=== PATIENT | female | born 1965 | race Caucasian/White ===

== ENCOUNTER 2018-11-29 06:39 | Inpatient (IN) | payer MEDICAID ==
--- NOTE | 2018-11-29 06:39 | EDPHY ---
H & P Time Seen by Provider: 11/29/18 06:39 HPI/ROS: CHIEF COMPLAINT: Vomiting HISTORY OF PRESENT ILLNESS: The patient arrives by EMS with history of 24 hr of vomiting clearing some streaks or flecks of blood this morning. Not helped by 3 orally dissolving Zofran tablets, received 4 mg IV Zofran via EMS. She was noted to be hypertensive and tachycardic prior to arrival. She has some intermittent chronic back pain and when the spasms get bad she has vomiting which is what happened this time. Symptoms severe, associated with full pain in her torso, no diarrhea or fever or chills. No urinary symptoms. REVIEW OF SYSTEMS: Eye: no change in vision ENT: no sore throat Cardiac: no chest pain or syncope Pulmonary: no cough or SOB Abdomen: HPI Musculoskeletal: HPI Skin: no rash Neuro: Mild headache, no weakness or numbness in extremities. Constitutional: no fever : no urinary symptoms, no incontinence A comprehensive 10 point review of systems is otherwise negative aside from elements mentioned in the history of present illness. PAST MEDICAL HISTORY: Back pain as above. No previous abdominal or back surgery. Social history: Recently moved to [place] from [facility], no local primary care. Currently staying in a hotel room. General Appearance: Alert and conversant, cooperative. Eyes: No scleral icterus. ENT, Mouth: Slightly dry mucous membranes. Respiratory: Normal respiratory effort, breath sounds equal, lungs are clear to auscultation. Cardiovascular: Regular rate and rhythm. Gastrointestinal: Abdomen is soft and non tender. No McBurney's point tenderness, normal bowel sounds, not distended. Neurological: Alert, face symmetric, normal motor and sensory in extremities. Toes downgoing, no clonus, patellar reflexes 2+ symmetric. Skin: Warm and dry, no rashes. Musculoskeletal: No peripheral edema. Psychiatric: Mildly anxious. Emergency Department course/MDM: Patient presents with recurrence of her back spasms which have landed her in the emergency department 4 times previously with associated vomiting. She does not have surgical abdominal exam of her abdomen. Plan for Phenergan 12.5, Valium 5 mg IV, IV fluid hydration. More likely to be non neurosurgical back spasms associated with vomiting, doubt bowel obstruction or appendicitis or cholecystitis or cauda equina. 725: Labs reviewed includes venous bicarbonate of 11 otherwise just slightly high glucose at 166. Likely due to significant dehydration. Plan admission with dehydration, bicarbonate 11, refractory to 3 oral Zofran, 1 IV Zofran, 1 IV Phenergan dose. 749: Re-medicated 5 mg IV Valium and 0.5 mg IV Dilaudid. Constitutional: Initial Vital Signs Temperature (C) 36.6 C 11/29/18 06:45 Heart Rate 117 H 11/29/18 06:45 Respiratory Rate 18 11/29/18 06:45 Blood Pressure 174/106 H 11/29/18 06:45 O2 Sat (%) 96 11/29/18 06:45 O2 Delivery Mode Room Air Allergies/Adverse Reactions: No Known Allergies Allergy (Unverified 11/29/18 06:47) Home Medications: Medication Instructions Recorded Abilify 11/29/18 Prozac 10 MG (*) 11/29/18 traZODone 11/29/18 Medical Decision Making Consult/Admit Bed Type: [address] for [place] - Data Points Laboratory Results: Laboratory Results 11/29/18 06:43 11/29/18 06:43 11/29/18 11/29/18 06:43 06:43 WBC 9.03 10^3/uL 10^3/uL (3.80-9.50) RBC 5.27 10^6/uL 10^6/uL (4.18-5.33) Hgb 14.0 g/dL g/dL (12.6-16.3) Hct 43.0 % % (38.0-47.0) MCV 81.6 fL fL (81.5-99.8) MCH 26.6 pg L pg (27.9-34.1) MCHC 32.6 g/dL g/dL (32.4-36.7) RDW 19.7 % H % (11.5-15.2) Plt Count 287 10^3/uL 10^3/uL (150-400) MPV 10.3 fL fL (8.7-11.7) Neut % (Auto) 88.2 % H % (39.3-74.2) Lymph % (Auto) 4.8 % L % (15.0-45.0) Bollinger % (Auto) 6.1 % % (4.5-13.0) Eos % (Auto) 0.0 % L % (0.6-7.6) Baso % (Auto) 0.3 % % (0.3-1.7) Nucleat RBC Rel Count 0.0 % % (0.0-0.2) Absolute Neuts (auto) 7.96 10^3/uL H 10^3/uL (1.70-6.50) Absolute Lymphs (auto) 0.43 10^3/uL L 10^3/uL (1.00-3.00) Absolute Monos (auto) 0.55 10^3/uL 10^3/uL (0.30-0.80) Absolute Eos (auto) 0.00 10^3/uL L 10^3/uL (0.03-0.40) Absolute Basos (auto) 0.03 10^3/uL 10^3/uL (0.02-0.10) Absolute Nucleated RBC 0.00 10^3/uL 10^3/uL (0-0.01) Immature Gran % 0.6 % % (0.0-1.1) Immature Gran # 0.05 10^3/uL 10^3/uL (0.00-0.10) RBC/WBC/PLT Morphology TNP Platelet Estimate TNP Sodium 141 mEq/L mEq/L (135-145) Potassium 4.5 mEq/L mEq/L (3.5-5.2) Chloride 102 mEq/L mEq/L (97-110) Carbon Dioxide 11 mEq/l L mEq/l (22-31) Anion Gap 28 mEq/L H mEq/L (6-14) BUN 10 mg/dL mg/dL (7-23) Creatinine 0.6 mg/dL mg/dL (0.6-1.0) Estimated GFR > 60 Glucose 166 mg/dL H mg/dL (70-100) Calcium 11.4 mg/dL H mg/dL (8.5-10.4) Phosphorus 3.9 mg/dL mg/dL (2.5-4.5) Medications Given: Discontinued Medications Diazepam (Valium) 5 mg IVP EDNOW ONE Stop: 11/29/18 06:59 Last Admin: 11/29/18 07:08 Dose: 5 mg Diazepam (Valium) 5 mg IVP EDNOW ONE Stop: 11/29/18 07:49 Last Admin: 11/29/18 07:54 Dose: 5 mg Hydromorphone HCl (Dilaudid) 0.5 mg IVP EDNOW ONE Stop: 11/29/18 07:50 Last Admin: 11/29/18 07:55 Dose: 0.5 mg Sodium Chloride (Ns) 1,000 mls @ 0 mls/hr IV EDNOW ONE; Wide Open PRN Reason: Protocol Stop: 11/29/18 06:59 Last Admin: 11/29/18 07:10 Dose: 1,000 mls Sodium Chloride (Ns) 1,000 mls @ 0 mls/hr IV EDNOW ONE; Wide Open PRN Reason: Protocol Stop: 11/29/18 07:26 Last Admin: 11/29/18 07:56 Dose: 1,000 mls Promethazine HCl (Phenergan) 12.5 mg IVP EDNOW ONE Stop: 11/29/18 06:59 Last Admin: 11/29/18 07:10 Dose: 12.5 mg Departure - Departure Disposition: [facility] Acute Clinical Impression: Dehydration Nausea & vomiting Qualifiers: Vomiting type: unspecified Vomiting Intractability: non-intractable Qualified Code(s): R11.2 - Nausea with vomiting, unspecified Back pain Qualifiers: Back pain location: back pain in unspecified location Chronicity: acute Back pain laterality: unspecified Qualified Code(s): M54.9 - Dorsalgia, unspecified Condition: Good
[2018-11-29] MEDS ORDERED: DIAZEPAM 10 MG/2 ML SYR IVP ONE ×2 (06:58→07:48)
[2018-11-29] MEDS ORDERED: PROMETHAZINE HCL 25 MG/ML INJ IVP ONE (06:58)
[2018-11-29] MEDS ORDERED: NS 1,000 ML IV ONE ×2 (06:58→07:25)
[2018-11-29 07:12] LABS: PLATELET COUNT 287 10^3/uL (150-400)
[2018-11-29] MEDS ORDERED: HYDROmorphONE/DILAUDID 2 MG/ML INJ IVP ONE (07:49)
[2018-11-29] MEDS: NS 1,000 ML IV SCH ×2 (10:13→18:46)
[2018-11-29] MEDS: METHOCARBAMOL 750 MG TAB PO PRN ×2 (10:16→19:54)
[2018-11-29] MEDS ORDERED: ONDANSETRON 4 MG/2 ML VIAL IVP PRN (10:52)
[2018-11-29] MEDS ORDERED: ACETAMINOPHEN 325 MG TAB PO PRN (10:52)
[2018-11-29] MEDS ORDERED: ONDANSETRON DISINTEGRATING 4 MG TAB PO PRN (10:52)
[2018-11-29] MEDS: FLUoxetine 10 MG CAP PO SCH (11:42)
[2018-11-29] MEDS: ARIPiprazole 10 MG TAB PO SCH (11:42)
--- NOTE | 2018-11-29 11:43 | GHP ---
[f rep st] HISTORY AND PHYSICAL DATE OF ADMISSION: 11/29/2018 CHIEF COMPLAINT: Vomiting. HISTORY OF PRESENT ILLNESS: Marlin is a 53-year-old woman who arrived by EMS due to vomiting for 24 hours. She has no significant past medical history except for back pain and anxiety. She describes having episodes of vomiting when she has severe back pain. She has chronic back pain and when she goes into spasms, she has trouble controlling the pain. The severe pain causes her to vomit. She denies any hematemesis. She notes pieces of bloody tissue in the emesis, but otherwise nothing else significant noted. During my interview, she is feeling overall comfortable, except had some shortness of breath earlier when she was vomiting. Also had some burning sensation with emesis. She has a back fracture at 3 different places. She has seen an orthopedic surgeon, 1 at [facility] and 1 at [facility]. She is moving from [place] to [place]. When I asked her why she is moving to [place], she is looking for more resources. She is currently homeless and living in her car. In addition, she has lost approximately fifteen pounds over the past month. PAST MEDICAL HISTORY: 1. Depression and anxiety, takes Abilify and Prozac. 2. Chronic back pain. 3. Abdominal hernia. PAST SURGICAL HISTORY: None. 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 She moved to [place] yesterday and she has been living in her car. She has been working with [employer] to help her with resources. She does not have any children. She is currently not in a relationship. She went through a very sad divorce. She does not smoke. She occasionally drinks alcohol. FAMILY HISTORY: Her father of complications from Alzheimer. Her mom lives in the [facility] and suffers from chronic back issues. HOME MEDICATIONS: Trazodone 50 mg at bedtime, fish oil 1000 mg daily, multivitamin 1 tab daily, glucosamine 500 mg daily, Prozac 30 mg daily, and Abilify 10 mg daily. REVIEW OF SYSTEMS: A 10-point review of system was performed and was negative other than pertinent positives in the HPI and past medical history. PHYSICAL EXAM: GENERAL: Marlin is a 53-year-old female who appears extremely anxious during my interview and appears to be somewhat underweight. VITAL SIGNS : Blood pressure is 123/77, heart rate of 100, respiratory rate of 16, O2 sats on 1 L are 90%, temperature 36.9 Celsius. EYES: Pupils are equal and reactive. No conjunctival injection noted. EOMs are intact. ENT: Normal ears. Hearing intact. NECK: Trachea is midline. CARDIOVASCULAR: She is quite tachycardic. No murmurs, rubs, or gallops noted. CHEST AND LUNGS: Normal respiratory effort. Clear without wheezing or rales. ABDOMEN: Soft, nontender. SKIN: No rashes or ulcers noted. She is somewhat diaphoretic when I touched her skin. MUSCULOSKELETAL: Normal gait. She is moving all upper and lower extremities without difficulty. PSYCHIATRIC: She is alert and oriented. Anxious. Appears to have normal judgment, insight and normal memory. DATA: Reviewed. A CBC shows a sodium of 141, potassium of 4.5, chloride of 102 , CO2 of 11, anion gap of 28, creatinine 0.6, BUN of 10, glucose of 166, calcium of 11.4, phosphorus 3.9. CBC: White blood cell count 9.03, hemoglobin 14, hematocrit of 43, platelet count of 287. I reviewed the patient's care with Dr. Mac Navarro, emergency room physician. ASSESSMENT/PLAN: 1. Dehydration with noted acidosis secondary to vomiting. Will continue IV fluids until she is taking adequate intake. 2. Vomiting. She has not had any episodes over the last several hours. Will order p.r.n. antiemetics as needed. 3. Homelessness. Will ask case management to get involved with her care. She clearly moved here to get resources and has been working with [employer]. 4. Hypercalcemia. I suspect this is from dehydration. Will recheck her labs in the morning. 5. Tachycardia with associated anxiety and weight loss. Will check a TSH. 6. Deep venous thrombosis prophylaxis, low risk. 7. Back pain with spasms. Will order p.r.n. Robaxin. Will avoid benzodiazepines in the setting of depression 9. Length of stay: She will likely require less than a two-midnight stay, which will make her observation status. /[id number]/MODL MTDD
[2018-11-29] MEDS: traZODone 50 MG TAB PO SCH (19:54)
[2018-11-30] MEDS ORDERED: POTASSIUM CL 20 MEQ TAB PO ONE (08:07)
[2018-11-30] MEDS: OMEGA-3 FATTY ACIDS 1,000 MG CAP PO SCH (08:40)
[2018-11-30] MEDS: ARIPiprazole 10 MG TAB PO SCH (08:40)
[2018-11-30] MEDS: GLUCOSAMINE SULF 500 MG CAP PO SCH (08:42)
[2018-11-30] MEDS: FLUoxetine 10 MG CAP PO SCH (08:42)
[2018-11-30] MEDS: MULTIVITAMINS 1 EACH TAB PO SCH (08:44)
[2018-11-30] MEDS: PROMETHAZINE HCL 25 MG/ML INJ IVP PRN ×2 (09:32→16:12)
[2018-11-30] MEDS: PANTOPRAZOLE SODIUM 40 MG VIAL IVP SCH (09:33)
--- NOTE | 2018-11-30 09:52 | ASMTCMCOM ---
CM Note CM Note Notes: CM met with Marlin in room and chart reviewed for discharge planning. Pt is a single 53yr old admitted with Nausea, vomiting, dehydration and back pain. PMH: Chronic Back pain, Depression and Anxiety which Pt take Abilify and Prozac. 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 Pt is from [place] and moved to [place] because she is looking for more resources. Pt live in her car. Pt is in contact with [facility] and had a meeting with the CM scheduled yesterday but was admitted to [facility]. This CM received permission from Marlin to called MICHAEL Kay at [facility] and let her Know Pt was adm to [facility]. Pt encouraged to contact CM and get signed up with them before discharging. Also, Given information on [facility] severe weather Detention. Bus ticket will be provided by CM to get to her car. Pt vomited her breakfast and will not discharge today. CM available for needs. PLAN: Likely discharge to [facility] "Detention in [place]" when medically cleared. Date Signed: 11/30/2018 09:51 AM Electronically Signed By:Caroline Mcmanus
[2018-11-30] MEDS: LORazepam 2 MG/ML INJ IVP PRN ×3 (11:15→20:24)
[2018-11-30] MEDS: hydrALAZINE 20 MG/ML VIAL IVP PRN ×2 (11:17→17:12)
[2018-11-30] MEDS: POTASSIUM Cl (KCl) 40 MEQ in NS 1,000 ML IV SCH ×2 (12:55→17:17)
[2018-11-30] MEDS ORDERED: ACETAMINOPHEN 650 MG SUPP PR PRN (13:25)
--- NOTE | 2018-11-30 14:14 | HOSPPROG ---
Hospitalist Progress Note Assessment/Plan: 53 year old homeless woman admitted with Nausea and vomiting. Intractable nausea and vomiting- still vomiting today, despite zofran and phenergan. Added ativan as her QT is over 506. etiology not entirely clear. no Tachycardia- has been persistently tachycardic since arrival. could be due to fluid losses, but has not responded boluses. TSH WNL, ECG reviewed showing inferior Q waves and sinus tach. patient denies any hx of [place]/cad. -place on telemetry -obtain tte given q waves. Hypokalemia- from nausea and vomiting. will start protocol Hypercalcemia- resolved overnight with fluids Transaminitis with hyperbilirubinemia- patient denies any abdominal pain. admits to drinking but states that she will have around 2 drinks a few times a week with friends. Last drink a few weeks ago. -check US of abd CAD- patient denies any hx of CAD, but ecg today with sinus tach, LVH, and pathologic q waves in inferior leads. -check Echo given likely hx of [place] Depression- on trazodone, prozac and abilify. caution with Qt HTN- on nothing for this. Persistently elevated BPs here. PRN hydralazine ordered for now. PPX- SCDs for now. low risk for DVT. Fluids- NS with K Lytes- Hypokalemic, Ca, mag wnl Nutrition- regular diet Cor- Full Dispo- change to inpatient for intractable NV, transaminitis, hypokalemia Subjective: patient still with intractable nv, overall says she feels unwell. Objective: Vital Signs Temp Pulse Resp BP Pulse Ox 37.9 C 122 H 18 159/101 H 94 11/30/18 13:25 11/30/18 13:25 11/30/18 11:46 11/30/18 11:46 11/30/18 11:46 Laboratory Results 11/30/18 05:27 11/29/18 11/30/18 12/01/18 05:59 05:59 05:59 Intake Total 3674 Balance 3674 - Physical Exam Constitutional: no apparent distress, appears nourished, not in pain Eyes: PERRL, anicteric sclera, EOMI Ears, Nose, Mouth, Throat: moist mucous membranes, hearing normal, ears appear normal, no oral mucosal ulcers Cardiovascular: tachycardia Respiratory: no respiratory distress, no rales or rhonchi, clear to auscultation Gastrointestinal: normoactive bowel sounds, soft, non-tender abdomen, no palpable masses Genitourinary: no bladder fullness, no bladder tenderness, no renal bruits Skin: no rashes or abrasions, no fluctuance, no induration Musculoskeletal: full muscle strength, no muscle tenderness, normal joint ROM Neurologic: AAOx3, sensation intact bilaterally Psychiatric: interacting appropriately, not anxious, not encephalopathic, thought process linear Lymph, Heme, Immunologic: no cervical LAD, no supraclavicular LAD ICD10 Worksheet Patient Problems: Problems Problem Status Onset Back pain Acute Dehydration Acute Nausea & vomiting Acute
--- NOTE | 2018-11-30 15:11 | PDMN ---
Medical Necessity Medical necessity: Change to IP, as of 11/30/18, per MD & MCG M-370; los >2 mn for ongoing management of persistent vomiting (etiology unclear) w/tachycardia, hypokalemia, transaminitis & hyperbilirubinemia; requiring further workup, cardiac monitoring, IVFs & med management; hx homelessness, CAD
--- NOTE | 2018-11-30 16:09 | ECHO ---
[email or web address] [address] [address] Main: [phone] Echocardiography Examination Transthoracic Name: VIKRAM BECERRIL MR#: [id number] Study Date: 11/30/2018 Study Time: 02:34 PM Date of : 1965 Age: 53 year(s) Height: 165.1 cm (65 in.) Weight: 51.71 kg (114 lb.) BSA: 1.56 m2 Gender: Female Examination: Echo Contrast: Image Quality: Rhythm: Sinus tachycardia Heart Rate: 116 bpm BP: 159 mmHg/101 mmHg Indication: Abnormal EKG, Sustained Ventricular Tachycardia Procedure Staff Referring Physician: Board Certified Orthodontist: Omi Calvillo RDCS Reading Physician: Bunny Dykes MD Requesting Provider: Ordering Physician: Lester Bob Indication: Abnormal EKG, Sustained Ventricular Tachycardia Measurements Chambers AV/MV Label Value Normal Value Label Value Normal Value LVOT Vmax 1.25 m/s (0.7m/s - 1.1m/s) AV PGmax 11 mmHg LVOTd 1.9 cm (1.8cm - 2cm) AV PGmean 6 mmHg LVOT VTI 27 cm (18cm - 22cm) AV Vmax 1.64 m/s LVDd, 2D 4.3 cm (3.9cm - 5.3cm) NESTOR (Vmax) 2.2 cm2 LVDs, 2D 2.2 cm (2.1cm - 4cm) NESTOR (VTI) 3.1 cm2 IVSd, 2D 0.8 cm (0.6cm - 1.1cm) MV E Vmax 0.7 m/s LVPWd, 2D 1 cm MV A Vmax 1.27 m/s LVEF, 2D 80 % (54% - 74%) MV E/A 0.55 LVOT PGmean 4 mmHg MV E/E' lateral 8.9 LVOT Vmean 0.87 m/s MV E/E' septal 16.6 (0.5 - 1.7) RVDd, 2D 2.3 cm (1.9cm - 3.8cm) MV E' septal 0.04 m/s LA Volume, BP 34 ml (22ml - 52ml) MV E' lateral 0.08 m/s LAESV index, BP 21.8 ml/m2 MV E/E' mean 11.67 Additional Vessels MV E' mean 0.06 m/s Label Value Normal Value TV/PV AoRoot, MM 3.3 cm (2.2cm - 3.7cm) Label Value Normal Value PV PGmax 7 mmHg PV Vmax, Caliper 1.29 m/s (0.6m/s - 0.9m/s) Patient: VIKRAM BECERRIL Study Date: 11/30/2018 Page 1 of 2 02:34 PM Conclusions Left Ventricle: Left ventricle is normal in size. Left ventricle wall thickness is normal. There are no regional wall motion abnormalities. Diastolic Dysfunction is indeterminate. Mitral Valve: No significant mitral regurgitation. Tricuspid Valve: No tricuspid regurgitation. Findings Left Ventricle: Left ventricle is normal in size. Global hypercontractility of the left ventricle. Left ventricle wall thickness is normal. There are no regional wall motion abnormalities. Diastolic Dysfunction is indeterminate. Right Ventricle: Normal size right ventricle. Right ventricular systolic function is normal. Left Atrium: The left atrium is normal in size. Right Atrium: The right atrium is normal in size. Mitral Valve: Mitral valve appears structurally normal. No significant mitral regurgitation. No mitral valve stenosis. Aortic Valve: Aortic leaflets are normal in appearance and function. No aortic valve regurgitation. The aortic valve is trileaflet. Tricuspid Valve: Tricuspid valve leaflets are normal in appearance and function. No tricuspid regurgitation. Pulmonic Valve: Pulmonic leaflets are normal in appearance and function. No pulmonic valve regurgitation is evident. Aorta: The aorta is normal. The aortic root size in M-mode measures 3.3 cm. Aorta Measurements AoRoot, MM is 3.3 cm. Pericardium: No pericardial effusion. Exam Details Procedure Ordered: Echo (No Signature Object) Patient: VIKRAM BECERRIL Study Date: 11/30/2018 Page 2 of 2 02:34 PM [id number]
[2018-11-30] MEDS ORDERED: FLUMAZENIL 0.5 MG/5 ML MDV IVP PRN (18:25)
[2018-11-30] MEDS ORDERED: NS 500 ML IV PRN (18:25)
[2018-11-30 18:48] LABS: PLATELET COUNT 183 10^3/uL (150-400)
[2018-11-30] MEDS: FAMOTIDINE 20 MG/NACL 50 ML IV SCH (20:25)
[2018-11-30] MEDS: HEPARIN 5,000 UNIT/0.5 ML INJ SC SCH (23:25)
[2018-11-30] MEDS: traZODone 50 MG TAB PO SCH (23:28)
[2018-12-01 04:51] LABS: PLATELET COUNT 164 10^3/uL (150-400)
[2018-12-01] MEDS: POTASSIUM Cl (KCl) 40 MEQ in NS 1,000 ML IV SCH ×2 (05:09→15:42)
[2018-12-01] MEDS: HEPARIN 5,000 UNIT/0.5 ML INJ SC SCH ×3 (06:28→21:11)
[2018-12-01] MEDS: FAMOTIDINE 20 MG/NACL 50 ML IV SCH ×2 (08:49→20:08)
[2018-12-01] MEDS: GLUCOSAMINE SULF 500 MG CAP PO SCH (08:49)
[2018-12-01] MEDS: PANTOPRAZOLE SODIUM 40 MG VIAL IVP SCH (08:49)
[2018-12-01] MEDS: MULTIVITAMINS 1 EACH TAB PO SCH (08:49)
[2018-12-01] MEDS: OMEGA-3 FATTY ACIDS 1,000 MG CAP PO SCH (09:56)
[2018-12-01] MEDS: ARIPiprazole 10 MG TAB PO SCH (10:03)
[2018-12-01] MEDS: THIAMINE HCL 500 MG in NS 100 ML IV SCH (10:03)
[2018-12-01] MEDS: LORazepam 2 MG/ML INJ IVP PRN (10:03)
[2018-12-01] MEDS: FLUoxetine 10 MG CAP PO SCH (10:04)
--- NOTE | 2018-12-01 14:10 | HOSPPROG ---
Hospitalist Progress Note Assessment/Plan: 53 year old homeless woman admitted with Nausea and vomiting. Etoh withdrawal- patient admitted to drinking 3-4 times a week, a few drinks. denied any hx of etoh withdrawal. I reviewed her records from [facility] where she has been admitted multiple times for intoxication, alcoholic hepatitis, withdrawal and clarissa mata tear in setting of severe intoxication. Patient denies this. -still getting IV ativan -cont ciwa monitoring -cont MVI, folic acid, and thiamine nausea and vomiting- seems improved today,per nursing the ativan IV overnight seemed to calm her down and help nausea Tachycardia- likely related to etoh withdrawal. TSH WNL, ECG reviewed showing inferior Q waves and sinus tach. patient denies any hx of [place]/cad. -TTE normal, -Has likely had an ID in the past given the inferior q waves on ecg. Hypokalemia- from nausea and vomiting. will start protocol Hypercalcemia- resolved overnight with fluids Transaminitis with hyperbilirubinemia- patient denies any abdominal pain. admits to drinking but states that she will have around 2 drinks a few times a week with friends. Last drink a few weeks ago. -I reviewed the US of abdomen and it is normal (my read) -likely due to alcohol abuse CAD- patient denies any hx of CAD, but ecg today with sinus tach, LVH, and pathologic q waves in inferior leads. normal echo Depression- on trazodone, prozac and abilify. caution with Qt, denies any SI or HI HTN- on nothing for this. Persistently elevated BPs here. PRN hydralazine ordered for now. if persists will order low dose lopressor. Homelessness- tied in to [facility]. CM working to assist with resources. PPX- SCDs for now. low risk for DVT. Fluids- NS with K Lytes- Hypokalemic, Ca, mag wnl Nutrition- regular diet Cor- Full Dispo- change to inpatient for intractable NV, transaminitis, hypokalemia Objective: Vital Signs Temp Pulse Resp BP Pulse Ox 36.9 C 108 H 18 148/98 H 96 12/01/18 12:27 12/01/18 12:27 12/01/18 12:27 12/01/18 12:27 12/01/18 12:27 Laboratory Results 12/01/18 03:36 12/01/18 03:36 11/30/18 12/01/18 12/02/18 05:59 05:59 05:59 Intake Total 2080 400 Output Total 950 250 Balance 1130 150 ICD10 Worksheet Patient Problems: Problems Problem Status Onset Back pain Acute Dehydration Acute Nausea & vomiting Acute
[2018-12-01] MEDS ORDERED: PROTOCOL POTASSIUM 1 DOSE MISC PRN (16:01)
--- NOTE | 2018-12-01 16:19 | ASMTCMCOM ---
CM Note CM Note Notes: 12/01/2018 Case Management Note Met w/pt to discuss d/c needs. [facility]. App[facility]ment [facility] for [facility] on Sunday 12/03 at 2:[address] L[place]in in [place]. Pt has extensive psych history with recent admission and discharge from [facility] in October. Pt mother Marlin Rosas called charge master coordinator. Marlin can be reached at [phone]. Stepfather can be reached at [phone]. Cog eval ordered today. Updated [facility] manager of case. Pt plans to sleep in car upon discharge, declined long-term bed. Case Management d/c poc: [facility] with [facility] appointment and [facility] to follow. Case Management to follow. Date Signed: 12/01/2018 04:17 PM Electronically Signed By:Anabel Romano RN
[2018-12-01] MEDS ORDERED: POTASSIUM CL 10 MEQ TAB PO ONE (19:56)
[2018-12-01] MEDS: traZODone 50 MG TAB PO SCH (20:23)
[2018-12-01] MEDS ORDERED: LOPERAMIDE HCL 2 MG CAP PO PRN (23:43)
[2018-12-02] MEDS: LORazepam 2 MG/ML INJ IVP PRN ×2 (00:03→04:40)
[2018-12-02] MEDS: POTASSIUM Cl (KCl) 40 MEQ in NS 1,000 ML IV SCH (01:58)
[2018-12-02] MEDS: HEPARIN 5,000 UNIT/0.5 ML INJ SC SCH ×2 (06:36→15:02)
[2018-12-02] MEDS: THIAMINE HCL 500 MG in NS 100 ML IV SCH (08:02)
[2018-12-02] MEDS: OMEGA-3 FATTY ACIDS 1,000 MG CAP PO SCH (08:03)
[2018-12-02] MEDS: MULTIVITAMINS 1 EACH TAB PO SCH (08:03)
[2018-12-02] MEDS: FLUoxetine 10 MG CAP PO SCH (08:03)
[2018-12-02] MEDS: PANTOPRAZOLE SODIUM 40 MG VIAL IVP SCH (08:03)
[2018-12-02] MEDS: GLUCOSAMINE SULF 500 MG CAP PO SCH (08:03)
[2018-12-02] MEDS: ARIPiprazole 10 MG TAB PO SCH (08:03)
[2018-12-02] MEDS ORDERED: POTASSIUM CL 10 MEQ TAB PO ONE (08:17)
--- NOTE | 2018-12-02 08:23 | HOSPPROG ---
Hospitalist Progress Note Assessment/Plan: 53 year old homeless woman with underlying psych disorder admitted with nausea and vomiting. #Etoh withdrawal: Improving, 6mg ativan last 24hrs - Continue CIWA protocol, switched to PO - Depending on psych recs, could switch to librium taper #Tachycardia: Sinus. TSH ok. Suspect driven by withdrawal and anxiety. - Monitor for now. Consider adding metoprolol #Anxiety, depression, h/o psych d/o - Psych consult placed - Cog eval ordered - Continue trazodone, prozac, abilify #Abnormal LFTs: Likely r/t alcohol. Liver US w/mild hepatic steatosis. #Nausea, vomiting: R/t withdrawal. Resolved, tolerating PO. #HTN: BP better w/mgmt of etoh withdrawal. - PRN hydral #Hypokalemia - Replace per protocol #Inferior Q waves: Denies h/o cad. TTE wnl. Not on aspirin/statin. #Homelessness: Tied into [facility]. CM working to assist with resources. VTE ppx: [facility] Code: full Dispo: inpatient Subjective: Getting better, no n/v. Eating ok. Very anxious about housing, follow up, etc. No chest pain, palpitations, dizziness. Objective: Vital Signs Temp Pulse Resp BP Pulse Ox 36.4 C 127 H 12 117/88 H 97 12/02/18 08:15 12/02/18 08:15 12/02/18 08:15 12/02/18 08:15 12/02/18 08:15 Laboratory Results 12/01/18 03:36 12/02/18 04:52 12/01/18 12/02/18 12/03/18 05:59 05:59 05:59 Intake Total 2080 2573 Output Total 950 250 Balance 1130 2323 - Physical Exam Constitutional: no apparent distress, appears nourished, not in pain Eyes: PERRL, anicteric sclera, EOMI Ears, Nose, Mouth, Throat: moist mucous membranes, hearing normal, ears appear normal, no oral mucosal ulcers Cardiovascular: no murmur, rub, or gallop, tachycardia, No edema Respiratory: no respiratory distress, no rales or rhonchi, clear to auscultation Gastrointestinal: normoactive bowel sounds, soft, non-tender abdomen, no palpable masses Genitourinary: no bladder fullness, no bladder tenderness, no renal bruits Skin: no rashes or abrasions, no fluctuance, no induration Musculoskeletal: full muscle strength, no muscle tenderness, normal joint ROM Neurologic: AAOx3 Psychiatric: interacting appropriately ICD10 Worksheet Patient Problems: Problems Problem Status Onset Back pain Acute Dehydration Acute Nausea & vomiting Acute
[2018-12-02] MEDS ORDERED: hydrALAZINE 25 MG TAB PO PRN (08:35)
[2018-12-02] MEDS: LORazepam 1 MG TAB PO PRN (09:26)
--- NOTE | 2018-12-02 22:00 | HOSPPROG ---
Hospitalist Progress Note Assessment/Plan: I evaluated the pt tonight and placed her on a detainer d/t having medical decision incapacity d/t acute etoh withdrawal and repeatedly attempting to leave the hospital and is at risk for poor medical injury and outcomes. Objective: Vital Signs Temp Pulse Resp BP Pulse Ox 36.9 C 108 H 18 137/92 H 96 12/02/18 16:00 12/02/18 16:00 12/02/18 16:00 12/02/18 16:00 12/02/18 16:00 Laboratory Results 12/01/18 03:36 12/02/18 19:13 12/01/18 12/02/18 12/03/18 05:59 05:59 05:59 Intake Total 2080 2573 1000 Output Total 950 250 Balance 1130 2323 1000 ICD10 Worksheet Patient Problems: Problems Problem Status Onset Back pain Acute Dehydration Acute Nausea & vomiting Acute
--- NOTE | 2018-12-03 01:00 | HOSPPROG ---
Hospitalist Progress Note Assessment/Plan: XC: Asked by RN to evaluate patient regarding MIH. The necessary form was not filled out by previous provider so hold not technically in effect. I had a lengthy conversation with the patient about her recent living situation and medical presentation. She is able to tell me calmly and clearly the steps that led her to this point. She does continue to deny ETOH use, which seems out of sync with her presentation. However, I do not feel this alone disqualifies her from having decision making capacity. During my evaluation she appears very medically stable. I note no active signs of withdrawal such as tremor, agitation , tachycardia, or hallucinations. She tells me she wants to leave to arrange her belongings prior to a meeting regarding placement tomorrow. Her reasoning seems sound and she is able to articulate the risks surrounding this. At this point I do feel that she has decision making capacity even if she may have some cognitive deficits. She has a history of depression and inpatient treatment but denies SI at this time. As a result, I will not place the patient on an MIH hold. I did stress to her that I feel the safest route would be to wait until morning for formal discharge and arrangement of available resources. She is agreeable with this at this time. Objective: Vital Signs Temp Pulse Resp BP Pulse Ox 37.1 C 109 H 14 144/105 H 98 12/02/18 23:45 12/02/18 23:45 12/02/18 23:45 12/02/18 23:45 12/02/18 23:45 Laboratory Results 12/01/18 03:36 12/02/18 19:13 12/01/18 12/02/18 12/03/18 05:59 05:59 05:59 Intake Total 2080 2573 1000 Output Total 950 250 Balance 1130 2323 1000 ICD10 Worksheet Patient Problems: Problems Problem Status Onset Nausea & vomiting Acute Back pain Acute Dehydration Acute
[2018-12-03] MEDS: METHOCARBAMOL 750 MG TAB PO PRN (01:01)
[2018-12-03] MEDS: LORazepam 1 MG TAB PO PRN (01:01)
[2018-12-03] MEDS: HEPARIN 5,000 UNIT/0.5 ML INJ SC SCH ×2 (01:03→07:14)
[2018-12-03] MEDS: traZODone 50 MG TAB PO SCH (01:28)
[2018-12-03 05:27] VITALS: BP 126/83
[2018-12-03] MEDS: MULTIVITAMINS 1 EACH TAB PO SCH (07:21)
[2018-12-03] MEDS: OMEGA-3 FATTY ACIDS 1,000 MG CAP PO SCH (07:21)
[2018-12-03] MEDS: THIAMINE HCL 500 MG in NS 100 ML IV SCH (07:21)
[2018-12-03] MEDS: FLUoxetine 10 MG CAP PO SCH (07:32)
[2018-12-03] MEDS: GLUCOSAMINE SULF 500 MG CAP PO SCH (07:33)
[2018-12-03] MEDS: ARIPiprazole 10 MG TAB PO SCH (07:46)
[2018-12-03] MEDS ORDERED: POTASSIUM CL 10 MEQ TAB PO ONE (07:52)
--- NOTE | 2018-12-03 09:10 | PDDCSUM ---
Discharge Summary Discharge Summary: Date of Admission: 11/29/2018 Date of Discharge: 12/03/2018 Studies: TTE, abdominal ultrasound Discharge Diagnoses: 1. Nausea, vomiting 2. Metabolic acidosis 3. Back spasms, chronic back pain 4. Sinus tachycardia 5. Anxiety, depression, ? other psych disorder 6. Mild cognitive impairment 7. Homelessness 8. History of etoh abuse/withdrawal 9. Marijuana use (also possibly contributing to #1) 10. Inferior Q waves (no prior h/o CAD, TTE wnl) 11. Abnormal LFT (mildly elevated AST, total bili, US w/hepatic steatosis) Brief Hospital Course: 53 year old homeless woman with anxiety, depression who was admitted with nausea and vomiting. She reports that she vomits when she develops back pain, as she did prior to admission. On admission, she was found to be tachycardic with a significant metabolic acidosis. This was attributed to her vomiting. Her back pain was treated with muscle relaxers and she was given IV fluids with resolution of her metabolic derangements. Notably, she did remain mildly tachycardic. A TSH was on the low end of normal. An echocardiogram was within normal limits. She was tolerating PO and had no pain at time of discharge. Upon review of outside records, it was discovered that she likely has more severe underlying psychiatric history than recognized on admission. She had a recent inpatient psychiatric hospitalization at [facility] 2018. She has also been hospitalized several times at [facility] for alcohol intoxication complicated by withdrawal, alcoholic hepatitis, and a clarissa-mata tear. She was placed on CIWA protocol given her tachycardia, mild hypertension, diaphoresis, and intermittent confusion. The patient denies drinking any alcohol recently on the account that she has no money. In retrospect, she may not have been withdrawing; her vital sign abnormalities and confusion were possibly precipitated by dehydration from vomiting. Nonetheless, she was medically safe for discharge and not showing any signs of alcohol withdrawal. Of note, several "Code Wander" were called on the patient when she would leave her room. She was briefly placed on a medical incapacity hold. We did perform a cognitive evaluation, which she scored a 24/30 on MoCA. This puts her in the mild cognitive impairment range. It is unclear if this is related to her psychiatric condition or prior history of etoh abuse. She adamantly denied SI or HI, and overall appeared compensated from a psychiatric stand point. At time of discharge, the patient had sound decision making capacity. She was set up with housing resources through [facility] and has a PCP appointment on day of discharge at the [facility]. Medications: Please refer to EMR for complete list. No changes were made. Follow Up Plan: 1. Has appointment at [facility] on 12/03. Recommend psychiatry referral if able. Physical Exam: Vitals reviewed, afebrile. Alert and oriented, no focal neurologic deficits, tachycardic, no murmur, lungs clear, abdomen soft and nt, no leg edema, no rashes.
[2018-12-04] MEDS ORDERED: THIAMINE HCL 100 MG TAB PO SCH (09:00)
== END 2018-12-03 09:58 | disposition home or self-care (01) | DRG 422 ==
LOC: F1N 09:04 → OBSVTOIN 11-30 14:16 → F2W 11-30 18:52 → F2N 12-02 23:10
PROVIDERS: ADMIT Internal Medicine; ATTEND Internal Medicine
DX: E86.0 Dehydration (principal); R11.2 Nausea with vomiting, unspecified; E87.2 Acidosis; E83.52 Hypercalcemia; E87.6 Hypokalemia; K76.0 Fatty (change of) liver, not elsewhere classified; M54.9 Dorsalgia, unspecified; F10.20 Alcohol dependence, uncomplicated; F32.9 Major depressive disorder, single episode, unspecified; I10 Essential (primary) hypertension; G31.84 Mild cognitive impairment of uncertain or unknown etiology; R94.5 Abnormal results of liver function studies; R00.0 Tachycardia, unspecified; F41.9 Anxiety disorder, unspecified; F12.90 Cannabis use, unspecified, uncomplicated; R94.31 Abnormal electrocardiogram [ECG] [EKG]; Z59.0 Homelessness
CPT/HCPCS: 92523-GN; 96374; G0378; G0480; J0360; J1170; J1200; J1644; J2060; J2405; J2550; J3360; J3411; J3480